=== PATIENT | female | born 1980 | race Caucasian/White ===

== ENCOUNTER → 2022-09-18 13:20 | Outpatient (CLI) | payer BC, SELFPAY ==
--- NOTE | ~2022-09-18 | MM_ITS ---
EXAMINATION: MM scrn barbara implant BI w riccardo HISTORY: Screening mammogram TECHNIQUE: Craniocaudal and mediolateral oblique 3-D tomosynthesis images with implant displacement a nd synthetic 2-D images were generated. Craniocaudal and mediolateral oblique views of the breasts wi thout implant displacement were obtained using full field digital mammography. CAD analysis was submi tted and interpreted. COMPARISON: None, baseline BREAST PARENCHYMAL COMPOSITION: There are scattered areas of fibroglandular density. FINDINGS: There is no evidence of suspicious mass, calcification, or architectural distortion to sugg est malignancy in either breast. IMPRESSION: 1. No mammographic evidence of malignancy. 2. Recommend routine screening mammography in one year. BI-RADS Category 1: Negative Reviewed, dictated and finalized at location A. [facility]
== END ==
PROVIDERS: PCP Nurse Practitioner; Visit Provider Nurse Practitioner Obstetrics & Gynecology
DX: Z12.31 Encounter for screening mammogram for malignant neoplasm of breast (principal)
CPT/HCPCS: 77063; 77067

== ENCOUNTER → 2023-09-25 09:57 | Outpatient (CLI) | payer BC, SELFPAY ==
--- NOTE | ~2023-09-25 | MM_ITS ---
EXAMINATION: MM scrn barbara implant BI w riccardo HISTORY: Screening mammogram TECHNIQUE: Craniocaudal and mediolateral oblique 3-D tomosynthesis images with implant displacement a nd synthetic 2-D images were generated. Craniocaudal and mediolateral oblique views of the breasts wi thout implant displacement were obtained using full field digital mammography. CAD analysis was submi tted and interpreted. COMPARISON: 09/18/2022 BREAST PARENCHYMAL COMPOSITION: The breasts are heterogeneously dense, which may obscure small masses FINDINGS: There is no evidence of suspicious mass, calcification, or architectural distortion to sugg est malignancy in either breast. There has been no suspicious interval change. IMPRESSION: 1. No mammographic evidence of malignancy. 2. Recommend routine screening mammography in one year. BI-RADS Category 1: Negative Reviewed, dictated and finalized at location A. [employer]
== END ==
PROVIDERS: PCP Nurse Practitioner Obstetrics & Gynecology; Visit Provider Nurse Practitioner Obstetrics & Gynecology
DX: Z12.31 Encounter for screening mammogram for malignant neoplasm of breast (principal)
CPT/HCPCS: 77063; 77067

== ENCOUNTER 2024-07-26 21:18 | Emergency (ER) | payer BC, SELFPAY ==
[2024-07-26 21:19] VITALS: BP 133/64; PULSE 97; RESP 18; TEMP 36.5; O2SAT 100
--- NOTE | 2024-07-26 23:04 | PC.NURSE ---
pt states that eye symptoms are improving and she doesn't feel as though she needs to be seen. pt verbalized understanding of leaving without seeing a provider. denies any questions or concerns.
== END 2024-07-26 23:05 | disposition left against medical advice (07) ==
PROVIDERS: Emergency Provider Physician Assistant; PCP Nurse Practitioner Family
DX: H57.89 Other specified disorders of eye and adnexa (principal)
CPT/HCPCS: 99199; A9270

== ENCOUNTER 2024-09-30 07:39 | Outpatient (CLI) | payer BC, SELFPAY ==
--- NOTE | ~2024-09-30 | MM_ITS ---
EXAMINATION: MM scrn barbara implant BI w riccardo HISTORY: Screening mammogram TECHNIQUE: Craniocaudal and mediolateral oblique 3-D tomosynthesis images with implant displacement a nd synthetic 2-D images were generated. Craniocaudal and mediolateral oblique views of the breasts wi thout implant displacement were obtained using full field digital mammography. CAD analysis was submi tted and interpreted. COMPARISON: 09/25/2023, 09/18/2022 BREAST PARENCHYMAL COMPOSITION: The breasts are heterogeneously dense, which may obscure small masses . FINDINGS: There is no evidence of suspicious mass, calcification, or architectural distortion to sugg est malignancy in either breast. There has been no suspicious interval change. IMPRESSION: No mammographic evidence of malignancy. Recommend routine screening mammography in one year. BI-RADS Category 1: Negative Reviewed, dictated and finalized at [facility]. T WOMAN
== END 2024-09-30 07:40 | disposition home or self-care (01) ==
LOC: MICIMG 07:39
PROVIDERS: PCP Nurse Practitioner Family; Visit Provider Nurse Practitioner
DX: Z12.31 Encounter for screening mammogram for malignant neoplasm of breast (principal)
CPT/HCPCS: 77063; 77067

== ENCOUNTER 2024-10-30 10:41 | Outpatient (CLI) | payer BC, SELFPAY | END 2024-10-30 10:42 | disposition home or self-care (01) | LOC: MICIMG 10:44 | PROVIDERS: PCP Nurse Practitioner Family; Visit Provider Nurse Practitioner Family | DX: E55.9 Vitamin D deficiency, unspecified (principal); R59.9 Enlarged lymph nodes, unspecified; Z80.8 Family history of malignant neoplasm of other organs or systems | CPT/HCPCS: 76536 ==

== ENCOUNTER 2025-01-15 08:49 | Outpatient (CLI) | payer BC, SELFPAY ==
--- NOTE | ~2025-01-15 | XR_ITS ---
XR finger 5th RT min 2V Ordering provider: Lynne Sanchez APRN History: . R52 - Pain, unspecified . Comparison: None. FINDINGS: BONES: No definite acute fracture or dislocation. JOINT SPACES: Normal. SOFT TISSUES: Normal. IMPRESSION: No definite acute osseous abnormality. If the Patient continues to have symptoms a repeat exam 10 days is advised. Reviewed, dictated and finalized at location A.
== END 2025-01-15 08:50 | disposition home or self-care (01) ==
LOC: MICIMG 08:50
PROVIDERS: PCP Nurse Practitioner Family; Visit Provider Nurse Practitioner Family
DX: M79.644 Pain in right finger(s) (principal)
CPT/HCPCS: 73140

== ENCOUNTER 2025-04-13 16:34 | Outpatient (CLI) | payer BC, SELFPAY ==
--- NOTE | ~2025-04-13 | XR_ITS ---
XR finger 5th RT min 2V 04/13/2025 17:06 INDICATION: Right fifth finger pain PROCEDURE: 4 views right fifth finger COMPARISON: 01/15/2025 FINDINGS: Fracture, dislocation or subluxation is not identified. The soft tissues appear within norm al limits. No foreign bodies are identified. IMPRESSION: 1: NO ACUTE BONE OR JOINT ABNORMALITY IDENTIFIED. Reviewed, dictated and finalized at location A.
== END 2025-04-13 16:35 | disposition home or self-care (01) ==
LOC: MICIMG 16:35
PROVIDERS: PCP Plastic Surgery; Visit Provider Plastic Surgery
DX: S63.639A Sprain of interphalangeal joint of unspecified finger, initial encounter (principal); X58.XXXA Exposure to other specified factors, initial encounter
CPT/HCPCS: 73140